=== PATIENT | female | born 1945 | race African-American/Black ===

== ENCOUNTER 2019-04-02 05:30 | Emergency (ER) | payer BC ==
[~2019-04-02] VITALS: Ht 167.6 cm; Wt 73.0 kg
[2019-04-02] MEDS ORDERED: ASPIRIN 81MG TABLET PO ONE (06:45)
[2019-04-02 07:00] LABS: BASOPHILS % 0.8 % (0.0-2.0); HEMATOCRIT. 41.4 % (36.0-48.0); HEMOGLOBIN. 14.4 g/dL (12.0-16.0); LYMPHOCYTES % 21.5 % (20.0-50.0); MEAN CORPUSCULAR HEMOGLOBIN 33.4 pg (28.0-32.0); MEAN CORPUSCULAR VOLUME 96.3 fL (81.0-99.0); MEAN PLATELET VOLUME 7.5 fl (7.4-10.4); MONOCYTES % 7.5 % (2.0-8.0); NEUTROPHILS % 69.2 % (40.0-76.0); PLATELET 243 x1000/uL (130-400); RED CELL DISTRIBUTION WIDTH 12.8 % (11.6-14.6)
[2019-04-02 07:07] LABS: CHLORIDE 105 mEq/L (98-107)
[2019-04-02 10:35] VITALS: BP 110/61
== END 2019-04-02 10:40 | disposition left against medical advice (07) ==
LOC: ER 07:20 → EDBEDREQ 09:54 → CANBEDREQ 10:21 → ER 10:40
DX: R07.89 Other chest pain (principal); I20.9 Angina pectoris, unspecified; R11.0 Nausea; Z85.3 Personal history of malignant neoplasm of breast
CPT/HCPCS: 36415; 71045; 83880; 84484; 85379; 93005; 99284